=== PATIENT | female | born 1965 | race African-American/Black ===

== ENCOUNTER 2021-10-15 10:33 | Emergency (ER) | payer MEDICARE, MEDICAID ==
[~2021-10-15] VITALS: Ht 154.9 cm; Wt 80.0 kg
[2021-10-15 11:22] VITALS: BP 138/86
[2021-10-15] MEDS ORDERED: NAPR-681 MT (13:52)
== END 2021-10-15 14:21 | disposition home or self-care (01) ==
LOC: ER 10:33
DX: M17.12 Unilateral primary osteoarthritis, left knee (principal); Z98.890 Other specified postprocedural states
CPT/HCPCS: 99281

== ENCOUNTER 2024-06-29 17:58 | Emergency (ER) | payer MEDICARE, MEDICAID ==
[~2024-06-29] VITALS: Ht 170.2 cm; Wt 75.0 kg
[~2024-06-29 17:58] MED LIST: NAPR-681 MT
[2024-06-29 18:02] VITALS: BP 111/67; PULSE 96; RESP 16; TEMP 98.6; O2SAT 98
[2024-06-29] MEDS ORDERED: IBUPROFEN 600MG TABLET PO ONE (18:30)
[2024-06-29] MEDS ORDERED: AMOX1TAB16 MT (19:55)
== END 2024-06-29 20:51 | disposition left against medical advice (07) ==
LOC: ER 17:58
DX: S71.152A Open bite, left thigh, initial encounter (principal); W54.0XXA Bitten by dog, initial encounter; Y93.89 Activity, other specified; Y92.89 Other specified places as the place of occurrence of the external cause; Y99.8 Other external cause status
CPT/HCPCS: 99283